=== PATIENT | female | born 1965 | race Caucasian/White ===

== ENCOUNTER 2021-01-29 15:49 | Emergency (ER) | payer SELFPAY ==
[~2021-01-29] VITALS: Ht 167.6 cm; Wt 88.3 kg
--- NOTE | 2021-01-29 16:19 | NUR ---
PT AMBULATORY W/ A STEADY GAIT TO THE BR.
--- NOTE | 2021-01-29 16:45 | NUR ---
THIS IS A 55 YO F W/ C/O RT EYE VISION LOSS STARTING THIS MORNING AT 0700 THIS AM UPON WAKING. PT REPORTS HAS BASELINE "WORSE VISION" IN THE RT EYE BUT TODAY MUCH WORSE. PER PT THIS MORNING WAS UNABLE TO SEE ANYTHING BUT BLACK. VISION HAS BEEN PROGRESSIVELY GETTING BETTER. DESCRIBES VISION IN RT EYE NOW "A LAYER OF VASELINE". ABLE TO SEE COLORS AND SHAPES BUT NO DEFINITION. PT SEEN BY [facility] AND DX W/ ACUTE CENTRAL RETINAL ARTERY OCCULSION, REFFERED TO ED FOR FURTHER WORK UP FOR OCCULAR STROKE. PT RESTING ON GURNEY W/ CALL LIGHT IN REACH AND SIDE RAILS UPX2. VSS, NADN. PIV STARTED, LABS DRAWN. AWAITING ED EVAL.
--- NOTE | 2021-01-29 17:26 | NUR ---
PT RESTING ON GURNEY W/ CALL LIGHT IN REACH AND SIDE RAILS UPX2. VSS, NADN. AWAITING ERP EVAL.
[2021-01-29 17:54] LABS: BASOPHILS % (AUTO) 1 % (0-1); EOSINOPHILS % (AUTO) 1 % (1-7); LYMPHOCYTES % (AUTO) 24 % (22-44); MEAN CORPUSCULAR HGB CONC 33.1 g/dL (32.4-35.8); MEAN PLATELET VOLUME 7.9 fL (7.4-10.4); MONOCYTES % (AUTO) 9 % (2-9); NEUTROPHILS % (AUTO) 65 % (42-75); PLATELET COUNT 281 x10^3/uL (130-400); RED BLOOD COUNT 3.81 x10^6/uL (3.82-5.3); RED CELL DISTRIBUTION WIDTH 13.8 % (9.6-15.2)
[2021-01-29 18:02] LABS: ALBUMIN 3.2 g/dL (3.4-5.0); ANION GAP 5 mmol/L (5-15); CHLORIDE 106 mmol/L (98-107); CREATININE 1.09 mg/dL (0.55-1.02)
--- NOTE | 2021-01-29 18:07 | NUR ---
AT BEDSIDE AT THIS TIME FOR ED EVAL.
[2021-01-29 18:18] LABS: INTERNATIONAL NORMALIZED RATIO 1.04 (0.93-1.1); PROTHROMBIN TIME 11.1 Seconds (9.6-11.5)
--- NOTE | 2021-01-29 18:54 | NUR ---
PT TO CT.
--- NOTE | 2021-01-29 19:00 | NUR ---
REPORT TO NABILA BRENNAN.
[2021-01-29] MEDS ORDERED: OMNIPAQUE 350 MG/ML, 100ML BOTTLE ONE (19:19)
[2021-01-29 20:00] VITALS: BP 149/70
[2021-01-29 21:29] LABS: HCT (SEDRATE) 36.9 % (34.6-47.8)
== END 2021-01-29 21:17 | disposition home or self-care (01) ==
LOC: ED 15:54
DX: H34.9 Unspecified retinal vascular occlusion (principal); H53.131 Sudden visual loss, right eye; R94.31 Abnormal electrocardiogram [ECG] [EKG]
CPT/HCPCS: 36415; 70450; 70496; 70498; 80048; 82040; 85025; 85610; 85651; 85730; 86140; 93005; 99285; Q9967